=== PATIENT | female | born 1995 | race Caucasian/White ===

== ENCOUNTER → 2017-06-02 | Day surgery (SDC) | payer OTHER ==
[~2017-06-02] VITALS: Ht 180.3 cm; Wt 89.8 kg
[~2017-06-02] MED LIST: LAMOTRIGINE100 M2 PO; QUETIAPINE FUMA50 M1 PO; TRI-SPRINTEC T1 EACH PO
--- NOTE | 2017-06-02 08:33 | Operative Report ---
Operative/Inv Procedure Report Surgery Date: 06/02/17 Name of Procedure: right ESWL Pre-Operative Diagnosis: right LP stone Post-Operative Diagnosis: same Estimated Blood Loss: scant Surgeon/Arch Support Maker: Mariposa Springer MD Anesthesia: local monitored anesthesi Complications: none Condition: stable Operative Indication: right renal stone with renal colic Operative/Procedure Note Note: 21yo female with a right kidney stone that was recently discovered. Given the pain of the stone on the right side, she opted to have it treated with ESWL. Discussed the risks, benefits and alternatives of the procedure. Answered all questions. Patient was taken to the opertaing room and placed in the supine position to optimally treat the right side. Time out was performed. IV cipro was infused. The ESWL treatment was started once the stone was easily identified on the right side lower to mid pole. A total of 2500 shocks to the right 4mm stone in the LP with US guidance. At a power of 1-17 for 2500 shocks, 18-19 for 250, 19 for 2000 shocks. Patient tolerated the procedure well. The stone was visibly changed at the end of the 2500 shocks. She was transferred to same day surgery. Findings: right renal stone LP Discharge Disposition: Same Day Admissions
== END ==
LOC: STS 03:28
DX: N20.0 Calculus of kidney (principal); Z87.442 Personal history of urinary calculi; Z87.440 Personal history of urinary (tract) infections; N12 Tubulo-interstitial nephritis, not specified as acute or chronic
CPT/HCPCS: 81025; J2250; J2405